=== PATIENT | female | born 1990 | race Caucasian/White ===

== ENCOUNTER 2020-02-29 11:47 | Inpatient (IN) ==
[2020-03-02] MEDS ORDERED: OXYTOCIN 30 UNITS/500 ML BAG IV PRN (11:46)
[2020-03-02] MEDS ORDERED: PENICILLIN G POTASSIUM 3 MU in DEXTROSE 5% 100 ML IV SCH ×2 (12:00→16:00)
[2020-03-02 12:07] LABS: Hematocrit (blood only) 37.7 % (37-47); Mean Corpuscular Hemoglobin 26.2 pg (25-34); Mean Corpuscular Volume 82.3 fL (80-100); Mean Platelet Volume 13.4 fL (7.4-10.4); Platelet Count 249 K/uL (130-400); RDW Standard Deviation 44.3 fL (36.4-46.3); Red Blood Count 4.58 M/uL (4.2-5.4); White Blood Count 10.05 K/uL (4.8-10.8)
[2020-03-02] MEDS ORDERED: DINOPROSTONE 10 MG INSERT PV ONE (12:11)
[2020-03-02] MEDS ORDERED: PENICILLIN G POTASSIUM 6 MU in DEXTROSE 5% 250 ML IV ONE (12:15)
--- NOTE | 2020-03-02 12:16 | Obstetrical Progress Note ---
Date of Service March 02, 2020 Assessment & Plan Admission and Anticipated Discharge Date Admission Date: March 02, 2020 Subjective Admit Note Physical Exam Physical Exam: 30 F P0000 at 40.4 weeks admitted for IOL for post-dates. GBS is positive. FHT Cat 1 with no contractions. Cervix finger tip/50/-3/vertex/firm/posterior/intact. Discussed options with patient for cervical ripening and will start with Cervidil. Results & Data ([facility]) Vital Signs (Past 12 Hours) Vital Signs Temp Pulse Resp BP 03/02/20 11:09 37.3 C 75 16 125/78 03/02/20 10:58 37.3 C 75 16 125/78
[2020-03-02 12:18] LABS: Mean Corpuscular Hgb Conc 31.8 g/dL (32-36)
--- NOTE | 2020-03-02 13:34 | Obstetrical Progress Note ---
Date of Service March 02, 2020 Assessment & Plan Admission and Anticipated Discharge Date Admission Date: March 02, 2020 Physical Exam Physical Exam: Cervidil 10 mg placed vaginally. FHT Cat 1. Results & Data ([facility]) Vital Signs (Past 12 Hours) Vital Signs Temp Pulse Resp BP 03/02/20 11:09 37.3 C 75 16 125/78 03/02/20 10:58 37.3 C 75 16 125/78
[2020-03-02] MEDS: LACTATED RINGER'S 1,000 ML IV PRN (17:13)
[2020-03-03] MEDS ORDERED: BUTORPHANOL TARTRATE 1 MG/ML VIAL IV PRN (00:33)
[2020-03-03] MEDS ORDERED: miSOPROStoL 50 MCG TAB PO SCH (03:00)
[2020-03-03] MEDS ORDERED: fentaNYL citrate 100 MCG/2 ML VIAL ONE (03:40)
[2020-03-03] MEDS ORDERED: fentaNYL 2MCG/ML ROPIV 1.25MG/ML 100 ML BAG EPI ONE (03:40)
[2020-03-03] MEDS ORDERED: ePHEDrine sulfate 50 MG/ML AMP ONE (03:40)
[2020-03-03] MEDS ORDERED: BUPIVACAINE 0.25% 30 ML VIAL ONE (03:40)
[2020-03-03] MEDS: LACTATED RINGER'S 1,000 ML IV PRN ×3 (04:08→17:15)
[2020-03-03] MEDS: PENICILLIN G POTASSIUM 3 MU in DEXTROSE 5% 100 ML IV PRN ×4 (04:12→15:39)
[2020-03-03] MEDS ORDERED: ePHEDrine sulfate 50 MG/ML AMP IV PRN (04:28)
[2020-03-03] MEDS ORDERED: NALOXONE HCL 1 MG in SODIUM CHLORIDE 0.9% 1000ML 1,000 ML IV PRN (04:28)
[2020-03-03] MEDS ORDERED: ONDANSETRON INJ 2 MG/ML 2 ML VIAL IV PRN (04:28)
[2020-03-03] MEDS ORDERED: NALOXONE HCL 0.4 MG/1 ML VIAL/CARP IV PRN (04:28)
[2020-03-03] MEDS ORDERED: DiphenhydrAMINE HCL 50 MG/ML VIAL IV PRN (04:28)
--- NOTE | 2020-03-03 04:33 | Anesthesiology Consultation ---
Date of Service March 03, 2020 Assessment & Plan Chart Review Chart Review: Patient NOT seen in Pre Admission Testing and Acceptable Risk for Labor Epidural Consults Requested none ASA ASA2 Proposed Anesthesia Anesthesia Type: Labor Epidural and CSE Risk / Benefits Reviewed With: PT / POA / Parent / Guardian, Accepts Plan and Informed Consent Obtained History Height/Weight Height: 5 ft 6 in Weight: 74.389 kg Allergies Allergy/AdvReac Type Severity Reaction Status Date / Time No Known Allergies Allergy Mild Verified 03/02/20 11:11 Medications Home Medications Medication Instructions Recorded Confirmed Last Taken cholecalciferol (vitamin D3) 50 2,000 unit PO QAM tab 04/29/19 03/02/20 03/02/20 06:30 mcg (2,000 unit) tablet PNV [id number]-[id number] fumarate-FA 1 tab PO QAM 01/27/20 03/02/20 03/02/20 06:30 [] loratadine [Claritin] 10 mg PO QAM 01/27/20 03/02/20 03/02/20 06:30 Active Medications Generic Name Dose Route Start Last Admin Trade Name Freq PRN Reason Stop Dose Admin Butorphanol Tartrate 1 mg 03/03/20 00:33 03/03/20 02:59 Stadol IV 04/02/20 00:32 1 mg Q2HWA PRN Administration Pain Lactated Ringer's 1,000 mls @ 125 mls/hr 03/02/20 11:46 03/03/20 04:08 Lr IV 03/04/20 11:45 999 mls/hr .Q8H PRN Administration L&D Protocol Protocol Penicillin G Potassium 3 mu/ 106 mls @ 100 mls/hr 03/03/20 04:03 03/03/20 04:12 Dextrose IV 03/13/20 04:02 100 mls/hr Q4H PRN Administration Give until delivery NPO Date Last Intake of Fluids: 03/03/20 Time Last Intake of Fluids: 04:00 Date Last Intake of Solids: 03/02/20 Time Last Intake of Solids: 17:00 Past Medical History Medical History Cataract left eye Syncope, near (Inactive) Vasovagal syncope hx of no indication what triggers Exercise / Class Metabolic Activity II 4-5 Yardwork/Stairs/Walk up hill Past Family History Family History Father Diabetes Hypertension Coronary heart disease Uncle Colorectal cancer Grandfather Myocardial infarction Prostate cancer Past Surgical History Surgical History History of tonsillectomy Past Anesthesia History No Hx of Anesthesia Complications and No Family Hx of Anesthesia Complications History of PONV No Hx of PONV and No Hx of Motion Sickness Social History Smoking Status: Never smoker Hx Alcohol Use: No Hx Substance Use: No substance use type: does not use Review of Systems no chest pain or sob Physical Exam Vital Signs Last Vital Signs Temp 37.1 C 03/03/20 03:15 Pulse 67 03/03/20 04:28 Resp 18 03/02/20 22:55 BP 121/70 03/02/20 22:55 Pulse Ox 98 03/03/20 04:28 ENMT Mouth: no TMJ abnormality Thyromental Distance: > or= 3.5 Finger Breadths Mallampati Class: II Neck normal visual inspection Respiratory normal respiratory effort Auscultation: lungs clear to auscultation bilaterally Cardiovascular Rate/Rhythm: regular rate and regular rhythm Musculoskeletal Spine: normal cervical ROM Neurologic moves all extremities Psychiatric Orientation: alert and oriented x 3 Testing Laboratory Results 03/02/20 11:57
--- NOTE | 2020-03-03 07:41 | Obstetrical Progress Note ---
Date of Service March 03, 2020 Assessment & Plan Admission and Anticipated Discharge Date Admission Date: March 02, 2020 Subjective Patient is seen and examined She is known to me from office Reviewed her records Admitted by Dr Andino yesterday for IOL Received Cervidil, SROM at [place], Epidural this morning around 45 am Comfortable FHR categ I Melvin ctxs q 2-4 min VE: 6/ 80%/0, small caput on PCN for GBS Continue to monitor Anticipate Results & Data ([facility]) Vital Signs (Past 12 Hours) Vital Signs Temp Pulse Resp BP Pulse Ox 03/03/20 07:33 85 96 03/03/20 07:32 83 105/65 03/03/20 07:28 75 98 03/03/20 07:23 76 97 03/03/20 07:18 67 96 03/03/20 07:15 71 107/59 L 03/03/20 07:13 76 97 03/03/20 07:08 76 98 03/03/20 07:03 80 97 03/03/20 07:01 81 101/56 L 03/03/20 07:00 37.1 C 16 03/03/20 06:58 80 100 03/03/20 06:53 80 98 03/03/20 06:48 69 98 03/03/20 06:46 72 98/56 L 03/03/20 06:43 71 97 03/03/20 06:38 67 97 03/03/20 06:33 70 97 03/03/20 06:31 64 99/54 L 03/03/20 06:28 65 97 03/03/20 06:23 73 97 03/03/20 06:18 69 97 03/03/20 06:15 67 102/56 L 03/03/20 06:13 66 98 03/03/20 06:08 70 97 03/03/20 06:03 74 99 03/03/20 06:01 75 111/68 03/03/20 05:58 65 98 03/03/20 05:53 69 98 03/03/20 05:48 75 96 03/03/20 05:45 81 93/57 L 03/03/20 05:43 78 98 03/03/20 05:38 81 99 03/03/20 05:33 80 97 03/03/20 05:28 79 94/54 L 97 03/03/20 05:23 73 98 03/03/20 05:22 68 100/57 L 03/03/20 05:18 74 95 03/03/20 05:16 67 108/55 L 03/03/20 05:14 65 111/60 03/03/20 05:13 69 96 03/03/20 05:12 68 108/57 L 03/03/20 05:10 79 100/55 L 03/03/20 05:08 79 98 03/03/20 05:06 75 87/53 L 03/03/20 05:03 69 96 03/03/20 05:02 77 85/51 L 03/03/20 04:58 73 96 03/03/20 04:55 75 100/52 L 03/03/20 04:53 74 98 03/03/20 04:52 76 101/58 L 03/03/20 04:50 71 103/59 L 03/03/20 04:49 75 105/59 L 03/03/20 04:48 72 98 03/03/20 04:47 71 118/65 03/03/20 04:44 77 117/66 03/03/20 04:43 67 98 03/03/20 04:38 77 98 03/03/20 04:33 77 98 03/03/20 04:28 67 98 03/03/20 04:23 66 97 03/03/20 04:18 66 99 03/03/20 03:15 37.1 C 03/03/20 01:26 36.7 C 03/02/20 22:55 36.8 C 60 18 121/70
[2020-03-03] MEDS ORDERED: OXYTOCIN 30 UNITS/500 ML BAG IV PRN ×2 (08:17→19:58)
[2020-03-03] MEDS: fentaNYL 2MCG/ML ROPIV 1.25MG/ML 100 ML BAG EPI PRN ×2 (11:39→16:14)
--- NOTE | 2020-03-03 11:53 | Obstetrical Progress Note ---
Date of Service March 03, 2020 Assessment & Plan Admission and Anticipated Discharge Date Admission Date: March 02, 2020 Subjective Patient is reevaluated She feels well, no complaints, no pain nor pressure VSS Afebrile FHR categ I Valentine: ctxs q 2-3 min VE; very thin rim of cervix, 100%, 0 Monitor closely Results & Data ([facility]) Vital Signs (Past 12 Hours) Vital Signs Temp Pulse Resp BP Pulse Ox 03/03/20 11:48 107 H 100 03/03/20 11:45 83 108/71 03/03/20 11:43 73 99 03/03/20 11:38 80 100 03/03/20 11:33 65 100 03/03/20 11:31 75 115/65 03/03/20 11:28 79 98 03/03/20 11:23 62 99 03/03/20 11:18 77 99 03/03/20 11:14 67 116/65 03/03/20 11:13 65 99 03/03/20 11:08 70 98 03/03/20 11:03 83 99 03/03/20 11:01 73 118/66 03/03/20 11:00 37.2 C 20 03/03/20 10:58 71 99 03/03/20 10:53 67 99 03/03/20 10:48 63 98 03/03/20 10:46 67 115/67 03/03/20 10:43 71 99 03/03/20 10:38 67 99 03/03/20 10:33 75 99 03/03/20 10:31 63 120/67 03/03/20 10:30 16 03/03/20 10:28 68 99 03/03/20 10:23 67 99 03/03/20 10:18 79 99 03/03/20 10:15 81 111/65 03/03/20 10:13 91 H 99 03/03/20 10:08 82 98 03/03/20 10:03 77 99 03/03/20 10:00 67 20 117/69 03/03/20 09:58 67 99 03/03/20 09:53 62 99 03/03/20 09:48 67 99 03/03/20 09:45 69 117/69 03/03/20 09:43 63 98 03/03/20 09:38 60 99 03/03/20 09:33 63 98 03/03/20 09:30 69 18 116/70 03/03/20 09:28 64 99 03/03/20 09:23 63 98 03/03/20 09:18 66 98 03/03/20 09:14 66 113/69 03/03/20 09:13 67 98 03/03/20 09:08 63 99 03/03/20 09:03 60 98 03/03/20 09:01 37.2 C 18 03/03/20 08:59 70 109/68 03/03/20 08:58 62 98 03/03/20 08:53 66 98 03/03/20 08:48 70 98 03/03/20 08:45 65 115/68 03/03/20 08:43 66 97 03/03/20 08:38 61 97 03/03/20 08:33 64 97 03/03/20 08:32 67 117/65 03/03/20 08:30 16 03/03/20 08:28 66 97 03/03/20 08:23 63 97 03/03/20 08:18 65 97 03/03/20 08:16 62 113/69 03/03/20 08:13 65 97 03/03/20 08:08 74 98 03/03/20 08:03 64 98 03/03/20 08:00 18 03/03/20 07:59 64 111/69 03/03/20 07:58 64 97 03/03/20 07:53 65 96 03/03/20 07:48 64 97 03/03/20 07:44 66 110/67 03/03/20 07:43 66 97 03/03/20 07:38 70 97 03/03/20 07:33 85 96 03/03/20 07:32 83 105/65 03/03/20 07:30 16 03/03/20 07:28 75 98 03/03/20 07:23 76 97 03/03/20 07:18 67 96 03/03/20 07:15 71 107/59 L 03/03/20 07:13 76 97 03/03/20 07:08 76 98 03/03/20 07:03 80 97 03/03/20 07:01 81 101/56 L 03/03/20 07:00 37.1 C 16 03/03/20 06:58 80 100 07/03/20 06:53 80 98 03/03/20 06:48 69 98 03/03/20 06:46 72 98/56 L 03/03/20 06:43 71 97 03/03/20 06:38 67 97 03/03/20 06:33 70 97 03/03/20 06:31 64 99/54 L 03/03/20 06:28 65 97 03/03/20 06:23 73 97 03/03/20 06:18 69 97 03/03/20 06:15 67 102/56 L 03/03/20 06:13 66 98 03/03/20 06:08 70 97 03/03/20 06:03 74 99 03/03/20 06:01 75 111/68 03/03/20 05:58 65 98 03/03/20 05:53 69 98 03/03/20 05:48 75 96 03/03/20 05:45 81 93/57 L 03/03/20 05:43 78 98 03/03/20 05:38 81 99 03/03/20 05:33 80 97 03/03/20 05:28 79 94/54 L 97 03/03/20 05:23 73 98 03/03/20 05:22 68 100/57 L 03/03/20 05:18 74 95 03/03/20 05:16 67 108/55 L 03/03/20 05:14 65 111/60 03/03/20 05:13 69 96 03/03/20 05:12 68 108/57 L 03/03/20 05:10 79 100/55 L 03/03/20 05:08 79 98 03/03/20 05:06 75 87/53 L 03/03/20 05:03 69 96 03/03/20 05:02 77 85/51 L 03/03/20 04:58 73 96 03/03/20 04:55 75 100/52 L 03/03/20 04:53 74 98 03/03/20 04:52 76 101/58 L 03/03/20 04:50 71 103/59 L 03/03/20 04:49 75 105/59 L 03/03/20 04:48 72 98 03/03/20 04:47 71 118/65 03/03/20 04:44 77 117/66 03/03/20 04:43 67 98 03/03/20 04:38 77 98 03/03/20 04:33 77 98 03/03/20 04:28 67 98 03/03/20 04:23 66 97 03/03/20 04:18 66 99 03/03/20 03:15 37.1 C 03/03/20 01:26 36.7 C
--- NOTE | 2020-03-03 14:56 | Obstetrical Progress Note ---
Date of Service March 03, 2020 Assessment & Plan Admission and Anticipated Discharge Date Admission Date: March 02, 2020 Subjective She labor down for about an hour and then started pushing at 1412 VE; 10/ 100%/+1 to +2 with pushing, caput+, coned head, anterior fontanelle at 3 o'clock position, tried int rotation FHR categ I Ctxs spaced out q 3-5 min Plan to augment with pitocin and continue with pushing Results & Data ([facility]) Vital Signs (Past 12 Hours) Vital Signs Temp Pulse Resp BP Pulse Ox 03/03/20 14:48 82 98 03/03/20 14:46 72 138/66 03/03/20 14:43 73 98 03/03/20 14:38 75 98 03/03/20 14:33 75 98 03/03/20 14:30 82 20 132/60 03/03/20 14:28 84 99 03/03/20 14:23 72 98 03/03/20 14:18 70 99 03/03/20 14:14 87 125/83 03/03/20 14:13 77 99 03/03/20 14:08 89 100 03/03/20 14:03 72 99 03/03/20 14:01 72 127/72 03/03/20 14:00 22 03/03/20 13:58 80 98 03/03/20 13:53 71 97 03/03/20 13:48 80 99 03/03/20 13:45 89 115/71 03/03/20 13:43 72 99 03/03/20 13:38 81 99 03/03/20 13:33 85 99 03/03/20 13:30 77 16 121/73 03/03/20 13:28 74 99 03/03/20 13:23 72 100 03/03/20 13:18 71 99 03/03/20 13:15 76 117/75 03/03/20 13:13 75 100 03/03/20 13:08 83 100 03/03/20 13:03 75 99 03/03/20 13:01 85 127/71 03/03/20 13:00 20 03/03/20 12:59 37.1 C 16 03/03/20 12:58 73 99 03/03/20 12:53 67 99 03/03/20 12:48 70 100 03/03/20 12:45 74 129/76 03/03/20 12:43 93 H 99 03/03/20 12:38 75 99 03/03/20 12:33 70 99 03/03/20 12:31 71 127/75 03/03/20 12:30 18 03/03/20 12:28 75 99 03/03/20 12:23 77 98 03/03/20 12:18 85 98 03/03/20 12:15 78 123/75 03/03/20 12:13 72 99 03/03/20 12:08 78 98 03/03/20 12:03 78 99 03/03/20 12:01 78 123/79 03/03/20 12:00 16 03/03/20 11:58 82 99 03/03/20 11:53 75 99 03/03/20 11:48 107 H 100 03/03/20 11:45 83 108/71 03/03/20 11:43 73 99 03/03/20 11:38 80 100 03/03/20 11:33 65 100 03/03/20 11:31 75 115/65 03/03/20 11:28 79 98 03/03/20 11:23 62 99 03/03/20 11:18 77 99 03/03/20 11:14 67 116/65 03/03/20 11:13 65 99 03/03/20 11:08 70 98 03/03/20 11:03 83 99 03/03/20 11:01 73 118/66 03/03/20 11:00 37.2 C 20 03/03/20 10:58 71 99 03/03/20 10:53 67 99 03/03/20 10:48 63 98 03/03/20 10:46 67 115/67 03/03/20 10:43 71 99 03/03/20 10:38 67 99 03/03/20 10:33 75 99 03/03/20 10:31 63 120/67 03/03/20 10:30 16 03/03/20 10:28 68 99 03/03/20 10:23 67 99 03/03/20 10:18 79 99 03/03/20 10:15 81 111/65 03/03/20 10:13 91 H 99 03/03/20 10:08 82 98 03/03/20 10:03 77 99 0703/20 10:00 67 20 117/69 03/03/20 09:58 67 99 03/03/20 09:53 62 99 03/03/20 09:48 67 99 03/03/20 09:45 69 117/69 03/03/20 09:43 63 98 03/03/20 09:38 60 99 03/03/20 09:33 63 98 03/03/20 09:30 69 18 116/70 03/03/20 09:28 64 99 03/03/20 09:23 63 98 03/03/20 09:18 66 98 03/03/20 09:14 66 113/69 03/03/20 09:13 67 98 03/03/20 09:08 63 99 03/03/20 09:03 60 98 03/03/20 09:01 37.2 C 18 03/03/20 08:59 70 109/68 03/03/20 08:58 62 98 03/03/20 08:53 66 98 03/03/20 08:48 70 98 03/03/20 08:45 65 115/68 03/03/20 08:43 66 97 03/03/20 08:38 61 97 03/03/20 08:33 64 97 03/03/20 08:32 67 117/65 03/03/20 08:30 16 03/03/20 08:28 66 97 03/03/20 08:23 63 97 03/03/20 08:18 65 97 03/03/20 08:16 62 113/69 03/03/20 08:13 65 97 03/03/20 08:08 74 98 03/03/20 08:03 64 98 03/03/20 08:00 18 03/03/20 07:59 64 111/69 03/03/20 07:58 64 97 03/03/20 07:53 65 96 03/03/20 07:48 64 97 03/03/20 07:44 66 110/67 03/03/20 07:43 66 97 03/03/20 07:38 70 97 03/03/20 07:33 85 96 03/03/20 07:32 83 105/65 03/03/20 07:30 16 03/03/20 07:28 75 98 03/03/20 07:23 76 97 03/03/20 07:18 67 96 03/03/20 07:15 71 107/59 L 03/03/20 07:13 76 97 03/03/20 07:08 76 98 03/03/20 07:03 80 97 03/03/20 07:01 81 101/56 L 03/03/20 07:00 37.1 C 16 03/03/20 06:58 80 100 03/03/20 06:53 80 98 03/03/20 06:48 69 98 03/03/20 06:46 72 98/56 L 03/03/20 06:43 71 97 03/03/20 06:38 67 97 03/03/20 06:33 70 97 03/03/20 06:31 64 99/54 L 03/03/20 06:28 65 97 03/03/20 06:23 73 97 03/03/20 06:18 69 97 03/03/20 06:15 67 102/56 L 03/03/20 06:13 66 98 03/03/20 06:08 70 97 03/03/20 06:03 74 99 03/03/20 06:01 75 111/68 03/03/20 05:58 65 98 03/03/20 05:53 69 98 03/03/20 05:48 75 96 03/03/20 05:45 81 93/57 L 03/03/20 05:43 78 98 03/03/20 05:38 81 99 03/03/20 05:33 80 97 03/03/20 05:28 79 94/54 L 97 03/03/20 05:23 73 98 03/03/20 05:22 68 100/57 L 03/03/20 05:18 74 95 03/03/20 05:16 67 108/55 L 03/03/20 05:14 65 111/60 03/03/20 05:13 69 96 03/03/20 05:12 68 108/57 L 03/03/20 05:10 79 100/55 L 03/03/20 05:08 79 98 03/03/20 05:06 75 87/53 L 03/03/20 05:03 69 96 03/03/20 05:02 77 85/51 L 03/03/20 04:58 73 96 03/03/20 04:55 75 100/52 L 03/03/20 04:53 74 98 03/03/20 04:52 76 101/58 L 03/03/20 04:50 71 103/59 L 03/03/20 04:49 75 105/59 L 03/03/20 04:48 72 98 03/03/20 04:47 71 118/65 03/03/20 04:44 77 117/66 03/03/20 04:43 67 98 03/03/20 04:38 77 98 03/03/20 04:33 77 98 03/03/20 04:28 67 98 03/03/20 04:23 66 97 03/03/20 04:18 66 99 03/03/20 03:15 37.1 C
--- NOTE | 2020-03-03 17:15 | Obstetrical Progress Note ---
Date of Service March 03, 2020 Assessment & Plan Admission and Anticipated Discharge Date Admission Date: March 02, 2020 Subjective Patient labored down another hour, stayed on kneed chest position for about half an hour Now on her back and has been pushing with good efforts. Head at +1 and +2 with pushing, caput and coned, still ROP FHR 130's categ I had one decel after 3 ctxs, bolus and nasal O2 were started recovered with good variability Continue to monitorclosely and pushing Results & Data ([facility]) Vital Signs (Past 12 Hours) Vital Signs Temp Pulse Resp BP Pulse Ox 03/03/20 17:03 80 99 03/03/20 17:00 91 H 113/74 03/03/20 16:58 90 97 03/03/20 16:53 97 H 97 03/03/20 16:48 76 98 03/03/20 16:45 76 102/55 L 03/03/20 16:43 73 99 03/03/20 16:38 81 98 03/03/20 16:33 72 98 03/03/20 16:30 87 104/53 L 03/03/20 16:28 83 98 03/03/20 16:23 77 98 03/03/20 16:20 102 H 94 03/03/20 16:18 88 96 03/03/20 16:15 71 125/75 03/03/20 16:13 68 98 03/03/20 16:08 71 97 03/03/20 16:03 66 99 03/03/20 15:59 37.1 C 70 20 123/71 03/03/20 15:58 73 99 03/03/20 15:53 63 98 03/03/20 15:48 72 97 03/03/20 15:46 64 128/72 03/03/20 15:43 67 98 03/03/20 15:38 74 99 03/03/20 15:33 73 96 03/03/20 15:31 67 129/67 03/03/20 15:28 75 98 03/03/20 15:23 69 99 03/03/20 15:18 64 98 03/03/20 15:15 64 130/72 03/03/20 15:13 64 97 03/03/20 15:08 70 98 03/03/20 15:03 67 126/73 98 03/03/20 15:01 37.8 C H 61 20 133/74 03/03/20 14:58 85 98 03/03/20 14:53 96 H 98 03/03/20 14:48 82 98 03/03/20 14:46 72 138/66 03/03/20 14:43 73 98 03/03/20 14:38 75 98 03/03/20 14:33 75 98 03/03/20 14:30 82 20 132/60 03/03/20 14:28 84 99 03/03/20 14:23 72 98 03/03/20 14:18 70 99 03/03/20 14:14 87 125/83 03/03/20 14:13 77 99 03/03/20 14:08 89 100 03/03/20 14:03 72 99 03/03/20 14:01 72 127/72 03/03/20 14:00 22 03/03/20 13:58 80 98 03/03/20 13:53 71 97 03/03/20 13:48 80 99 03/03/20 13:45 89 115/71 03/03/20 13:43 72 99 03/03/20 13:38 81 99 03/03/20 13:33 85 99 03/03/20 13:30 77 16 121/73 03/03/20 13:28 74 99 03/03/20 13:23 72 100 03/03/20 13:18 71 99 03/03/20 13:15 76 117/75 03/03/20 13:13 75 100 03/03/20 13:08 83 100 03/03/20 13:03 75 99 03/03/20 13:01 85 127/71 03/03/20 13:00 20 03/03/20 12:59 37.1 C 16 03/03/20 12:58 73 99 03/03/20 12:53 67 99 03/03/20 12:48 70 100 03/03/20 12:45 74 129/76 03/03/20 12:43 93 H 99 03/03/20 12:38 75 99 03/03/20 12:33 70 99 03/03/20 12:31 71 127/75 03/03/20 12:30 18 03/03/20 12:28 75 99 03/03/20 12:23 77 98 03/03/20 12:18 85 98 03/03/20 12:15 78 123/75 03/03/20 12:13 72 99 03/03/20 12:08 78 98 03/03/20 12:03 78 99 03/03/20 12:01 78 123/79 03/03/20 12:00 16 03/03/20 11:58 82 99 03/03/20 11:53 75 99 03/03/20 11:48 107 H 100 03/03/20 11:45 83 108/71 03/03/20 11:43 73 99 03/03/20 11:38 80 100 03/03/20 11:33 65 100 03/03/20 11:31 75 115/65 03/03/20 11:28 79 98 03/03/20 11:23 62 99 03/03/20 11:18 77 99 03/03/20 11:14 67 116/65 03/03/20 11:13 65 99 03/03/20 11:08 70 98 03/03/20 11:03 83 99 03/03/20 11:01 73 118/66 03/03/20 11:00 37.2 C 20 03/03/20 10:58 71 99 03/03/20 10:53 67 99 03/03/20 10:48 63 98 03/03/20 10:46 67 115/67 03/03/20 10:43 71 99 03/03/20 10:38 67 99 03/03/20 10:33 75 99 03/03/20 10:31 63 120/67 03/03/20 10:30 16 03/03/20 10:28 68 99 03/03/20 10:23 67 99 03/03/20 10:18 79 99 03/03/20 10:15 81 111/65 03/03/20 10:13 91 H 99 03/03/20 10:08 82 98 03/03/20 10:03 77 99 03/03/20 10:00 67 20 117/69 03/03/20 09:58 67 99 03/03/20 09:53 62 99 03/03/20 09:48 67 99 03/03/20 09:45 69 117/69 03/03/20 09:43 63 98 03/03/20 09:38 60 99 03/03/20 09:33 63 98 07/03/20 09:30 69 18 116/70 03/03/20 09:28 64 99 03/03/20 09:23 63 98 03/03/20 09:18 66 98 03/03/20 09:14 66 113/69 03/03/20 09:13 67 98 03/03/20 09:08 63 99 03/03/20 09:03 60 98 03/03/20 09:01 37.2 C 18 03/03/20 08:59 70 109/68 03/03/20 08:58 62 98 03/03/20 08:53 66 98 03/03/20 08:48 70 98 03/03/20 08:45 65 115/68 03/03/20 08:43 66 97 03/03/20 08:38 61 97 03/03/20 08:33 64 97 03/03/20 08:32 67 117/65 03/03/20 08:30 16 03/03/20 08:28 66 97 03/03/20 08:23 63 97 03/03/20 08:18 65 97 03/03/20 08:16 62 113/69 03/03/20 08:13 65 97 03/03/20 08:08 74 98 03/03/20 08:03 64 98 03/03/20 08:00 18 03/03/20 07:59 64 111/69 03/03/20 07:58 64 97 03/03/20 07:53 65 96 03/03/20 07:48 64 97 03/03/20 07:44 66 110/67 03/03/20 07:43 66 97 03/03/20 07:38 70 97 03/03/20 07:33 85 96 03/03/20 07:32 83 105/65 03/03/20 07:30 16 03/03/20 07:28 75 98 03/03/20 07:23 76 97 03/03/20 07:18 67 96 03/03/20 07:15 71 107/59 L 03/03/20 07:13 76 97 03/03/20 07:08 76 98 03/03/20 07:03 80 97 03/03/20 07:01 81 101/56 L 03/03/20 07:00 37.1 C 16 03/03/20 06:58 80 100 03/03/20 06:53 80 98 03/03/20 06:48 69 98 03/03/20 06:46 72 98/56 L 03/03/20 06:43 71 97 03/03/20 06:38 67 97 03/03/20 06:33 70 97 03/03/20 06:31 64 99/54 L 03/03/20 06:28 65 97 03/03/20 06:23 73 97 03/03/20 06:18 69 97 03/03/20 06:15 67 102/56 L 03/03/20 06:13 66 98 03/03/20 06:08 70 97 03/03/20 06:03 74 99 03/03/20 06:01 75 111/68 03/03/20 05:58 65 98 03/03/20 05:53 69 98 03/03/20 05:48 75 96 03/03/20 05:45 81 93/57 L 03/03/20 05:43 78 98 03/03/20 05:38 81 99 03/03/20 05:33 80 97 03/03/20 05:28 79 94/54 L 97 03/03/20 05:23 73 98 03/03/20 05:22 68 100/57 L 03/03/20 05:18 74 95 03/03/20 05:16 67 108/55 L 03/03/20 05:14 65 111/60 03/03/20 05:13 69 96 03/03/20 05:12 68 108/57 L 03/03/20 05:10 79 100/55 L
--- NOTE | 2020-03-03 18:17 | Obstetrical Progress Note ---
Date of Service March 03, 2020 Assessment & Plan Admission and Anticipated Discharge Date Admission Date: March 02, 2020 Subjective Patient has been pushing with good efforts for over an hour Head is lower, small caput visible at introitus FHR reassuring Continue to monitor closely Results & Data ([facility]) Vital Signs (Past 12 Hours) Vital Signs Temp Pulse Resp BP Pulse Ox 03/03/20 18:13 99 H 97 03/03/20 18:08 92 H 98 03/03/20 18:07 122 H 92 03/03/20 18:03 93 H 98 03/03/20 17:59 94 H 122/69 03/03/20 17:58 86 98 03/03/20 17:53 115 H 98 03/03/20 17:48 96 H 97 03/03/20 17:46 88 131/63 03/03/20 17:43 115 H 99 03/03/20 17:38 117 H 99 03/03/20 17:33 114 H 100 03/03/20 17:28 110 H 100 03/03/20 17:25 116 H 94 03/03/20 17:23 121 H 100 03/03/20 17:20 111 H 92 03/03/20 17:18 88 99 03/03/20 17:13 83 100 03/03/20 17:08 89 99 03/03/20 17:03 80 99 03/03/20 17:00 91 H 113/74 03/03/20 16:58 90 97 03/03/20 16:53 97 H 97 03/03/20 16:48 76 98 03/03/20 16:45 76 102/55 L 03/03/20 16:43 73 99 03/03/20 16:38 81 98 03/03/20 16:33 72 98 03/03/20 16:30 87 104/53 L 03/03/20 16:28 83 98 03/03/20 16:23 77 98 03/03/20 16:20 102 H 94 03/03/20 16:18 88 96 03/03/20 16:15 71 125/75 03/03/20 16:13 68 98 03/03/20 16:08 71 97 03/03/20 16:03 66 99 03/03/20 15:59 37.1 C 70 20 123/71 03/03/20 15:58 73 99 03/03/20 15:53 63 98 03/03/20 15:48 72 97 03/03/20 15:46 64 128/72 03/03/20 15:43 67 98 03/03/20 15:38 74 99 03/03/20 15:33 73 96 03/03/20 15:31 67 129/67 03/03/20 15:28 75 98 03/03/20 15:23 69 99 03/03/20 15:18 64 98 03/03/20 15:15 64 130/72 03/03/20 15:13 64 97 03/03/20 15:08 70 98 03/03/20 15:03 67 126/73 98 03/03/20 15:01 37.8 C H 61 20 133/74 03/03/20 14:58 85 98 03/03/20 14:53 96 H 98 03/03/20 14:48 82 98 03/03/20 14:46 72 138/66 03/03/20 14:43 73 98 03/03/20 14:38 75 98 03/03/20 14:33 75 98 03/03/20 14:30 82 20 132/60 03/03/20 14:28 84 99 03/03/20 14:23 72 98 03/03/20 14:18 70 99 03/03/20 14:14 87 125/83 03/03/20 14:13 77 99 03/03/20 14:08 89 100 03/03/20 14:03 72 99 03/03/20 14:01 72 127/72 03/03/20 14:00 22 03/03/20 13:58 80 98 03/03/20 13:53 71 97 03/03/20 13:48 80 99 03/03/20 13:45 89 115/71 03/03/20 13:43 72 99 03/03/20 13:38 81 99 03/03/20 13:33 85 99 03/03/20 13:30 77 16 121/73 03/03/20 13:28 74 99 03/03/20 13:23 72 100 03/03/20 13:18 71 99 03/03/20 13:15 76 117/75 03/03/20 13:13 75 100 03/03/20 13:08 83 100 03/03/20 13:03 75 99 07/03/20 13:01 85 127/71 03/03/20 13:00 20 03/03/20 12:59 37.1 C 16 03/03/20 12:58 73 99 03/03/20 12:53 67 99 03/03/20 12:48 70 100 03/03/20 12:45 74 129/76 03/03/20 12:43 93 H 99 03/03/20 12:38 75 99 03/03/20 12:33 70 99 03/03/20 12:31 71 127/75 03/03/20 12:30 18 03/03/20 12:28 75 99 03/03/20 12:23 77 98 03/03/20 12:18 85 98 03/03/20 12:15 78 123/75 03/03/20 12:13 72 99 03/03/20 12:08 78 98 03/03/20 12:03 78 99 03/03/20 12:01 78 123/79 03/03/20 12:00 16 03/03/20 11:58 82 99 03/03/20 11:53 75 99 03/03/20 11:48 107 H 100 03/03/20 11:45 83 108/71 03/03/20 11:43 73 99 03/03/20 11:38 80 100 03/03/20 11:33 65 100 03/03/20 11:31 75 115/65 03/03/20 11:28 79 98 03/03/20 11:23 62 99 03/03/20 11:18 77 99 03/03/20 11:14 67 116/65 03/03/20 11:13 65 99 03/03/20 11:08 70 98 03/03/20 11:03 83 99 03/03/20 11:01 73 118/66 03/03/20 11:00 37.2 C 20 03/03/20 10:58 71 99 03/03/20 10:53 67 99 03/03/20 10:48 63 98 03/03/20 10:46 67 115/67 03/03/20 10:43 71 99 03/03/20 10:38 67 99 03/03/20 10:33 75 99 03/03/20 10:31 63 120/67 03/03/20 10:30 16 03/03/20 10:28 68 99 07 10:23 67 99 07 10:18 79 99 07 10:15 81 111/65 03/03/20 10:13 91 H 99 03/03/20 10:08 82 98 03/03/20 10:03 77 99 03/03/20 10:00 67 20 117/69 03/03/20 09:58 67 99 03/03/20 09:53 62 99 03/03/20 09:48 67 99 03/03/20 09:45 69 117/69 03/03/20 09:43 63 98 03/03/20 09:38 60 99 03/03/20 09:33 63 98 03/03/20 09:30 69 18 116/70 03/03/20 09:28 64 99 03/03/20 09:23 63 98 03/03/20 09:18 66 98 03/03/20 09:14 66 113/69 03/03/20 09:13 67 98 03/03/20 09:08 63 99 03/03/20 09:03 60 98 03/03/20 09:01 37.2 C 18 03/03/20 08:59 70 109/68 03/03/20 08:58 62 98 03/03/20 08:53 66 98 03/03/20 08:48 70 98 03/03/20 08:45 65 115/68 03/03/20 08:43 66 97 03/03/20 08:38 61 97 03/03/20 08:33 64 97 03/03/20 08:32 67 117/65 03/03/20 08:30 16 03/03/20 08:28 66 97 03/03/20 08:23 63 97 03/03/20 08:18 65 97 03/03/20 08:16 62 113/69 03/03/20 08:13 65 97 03/03/20 08:08 74 98 03/03/20 08:03 64 98 03/03/20 08:00 18 03/03/20 07:59 64 111/69 03/03/20 07:58 64 97 03/03/20 07:53 65 96 03/03/20 07:48 64 97 03/03/20 07:44 66 110/67 03/03/20 07:43 66 97 03/03/20 07:38 70 97 03/03/20 07:33 85 96 03/03/20 07:32 83 105/65 03/03/20 07:30 16 03/03/20 07:28 75 98 03/03/20 07:23 76 97 03/03/20 07:18 67 96 03/03/20 07:15 71 107/59 L 03/03/20 07:13 76 97 03/03/20 07:08 76 98 03/03/20 07:03 80 97 03/03/20 07:01 81 101/56 L 03/03/20 07:00 37.1 C 16 03/03/20 06:58 80 100 03/03/20 06:53 80 98 03/03/20 06:48 69 98 03/03/20 06:46 72 98/56 L 03/03/20 06:43 71 97 03/03/20 06:38 67 97 03/03/20 06:33 70 97 03/03/20 06:31 64 99/54 L 03/03/20 06:28 65 97 03/03/20 06:23 73 97 03/03/20 06:18 69 97
[2020-03-03] MEDS ORDERED: MEASLES, MUMPS & RUBELLA VIRUS VIAL SQ ONE (19:58)
[2020-03-03] MEDS ORDERED: DIPHTHERIA/TETANUS/PERTUSSIS 0.5 ML SYR/VIAL IM ONE (19:58)
[2020-03-03] MEDS ORDERED: HYDROCORTISONE ACETATE 25 MG SUPP PR PRN (19:58)
[2020-03-03] MEDS ORDERED: SUPERCREAM 0.870% 15 GM JAR EXT PRN (19:58)
[2020-03-03] MEDS ORDERED: bisacodyL 10 MG SUPP PR PRN (19:58)
[2020-03-03] MEDS ORDERED: ACETAMINOPHEN 325 MG TAB PO PRN (19:58)
[2020-03-03] MEDS ORDERED: BENZOCAINE 20% AER SPR 82.5 GM CAN EXT PRN (19:58)
[2020-03-03] MEDS: IBUPROFEN 600 MG TAB PO PRN (20:49)
[2020-03-03] MEDS: OXYCODONE/ACETAMINOPHEN 5mg/325mg TAB PO PRN (21:25)
--- NOTE | 2020-03-03 21:56 | Delivery Summary ---
DATE OF OPERATION: 03/02/2020 TIME OF DELIVERY: 19:21 p.m. DETAILS OF DELIVERY: The patient was found to be fully dilated and desired to push. She pushed for about half an hour and then wanted to labor down. After laboring down for 2 hours and then she started to push again, pushed about 2-1/2 hours and delivered the head without difficulty. There was a nuchal cord around the neck x1 which was reduced. There was a terminal meconium. Shoulders were delivered with minimal traction. Baby was handed off to the mother where mouth and nose were suctioned. He was actively moving and crying. Cord was clamped x2 and cut. It was cut at 1 minute delay. Cord blood was obtained. Perineum and vagina were checked for lacerations. There was a second-degree perineal laceration at the posterior fourchette, which was confirmed with rectal exam. Excellent sphincter tone was noted and there was a second-degree right upper vaginal wall laceration extending into the right labia and gloves were changed. The perineal body muscles around the sphincter were held with Allis clamp and reinforced with [id number] stitch x2 and the vaginal mucosa and bulbocavernous muscles were repaired with 2-0 Vicryl in a running fashion, skin in a subcuticular fashion. A rectal exam was repeated. No sutures were felt and excellent sphincter tone was noted. Gloves were changed and the vagina on the right superior wall was repaired with 2-0 Vicryl in a running locked fashion and then this suture was extended into the right labia to the periclitoral area with 3-0 Vicryl in a running fashion. Excellent hemostasis was achieved. The placenta was delivered spontaneous as intact and complete. Uterus was explored, found to be empty. Lower segment was cleared of all clots and debris. EBL was 200 mL. Mom and baby tolerated the procedure well. Baby was a viable male infant, Apgars 8/9. No complications happened. Mom and baby are stable and I was present during whole procedure. At the end of the procedure, sponge, needle and instrument count was correct x2. I attest to the content of the Intraoperative Record and any orders documented therein. Any exceptions are noted below. DILLOND
--- NOTE | 2020-03-03 22:40 | Anesthesia Procedure Note ---
Date of Service March 03, 2020 Anesthesia Post Epidural Note Vital Signs Vital Signs: Temp Pulse Resp BP Pulse Ox 37.1 C 78 18 120/62 97 03/03/20 21:59 03/03/20 21:59 03/03/20 21:59 03/03/20 21:59 03/03/20 19:18 Pain Intensity Bilateral Abdomen: Pain Intensity: 0 Notes Mental Status: alert / awake / arousable Nausea / Vomiting: adequately controlled Pain: adequately controlled Airway Patency, RR, SpO2: stable & adequate BP & HR: stable & adequate Hydration State: stable & adequate Neuraxial Anesthesia: was administered and sensory block is resolving Anesthetic Complications: no major complications apparent and Pt Satisfied with anesthetic care Epidural: Removed without complications and With tip intact
[2020-03-04] MEDS: IBUPROFEN 600 MG TAB PO PRN ×5 (01:00→22:50)
[2020-03-04] MEDS: OXYCODONE/ACETAMINOPHEN 5mg/325mg TAB PO PRN ×3 (01:01→13:26)
[2020-03-04 03:36] VITALS: O2SAT 97
[2020-03-04 06:34] LABS: Hematocrit (blood only) 36.7 % (37-47); Hemoglobin 11.5 g/dL (12.0-16.0); Mean Corpuscular Hemoglobin 25.6 pg (25-34); Mean Corpuscular Hgb Conc 31.3 g/dL (32-36); Mean Corpuscular Volume 81.7 fL (80-100); Mean Platelet Volume 13.4 fL (7.4-10.4); Platelet Count 233 K/uL (130-400); RDW Coefficient of Variation 15.2 % (11.5-14.5); RDW Standard Deviation 44.1 fL (36.4-46.3); Red Blood Count 4.49 M/uL (4.2-5.4); White Blood Count 24.73 K/uL (4.8-10.8)
[2020-03-04] MEDS: DOCUSATE SODIUM 100 MG CAP PO SCH ×2 (07:23→21:06)
[2020-03-04] MEDS: PRENATAL VITAMIN 1 TAB PO SCH (07:25)
[2020-03-04] MEDS: FERROUS SULFATE 325 MG TAB PO SCH (07:25)
--- NOTE | 2020-03-04 10:49 | Obstetrical Progress Note ---
Date of Service March 04, 2020 Assessment & Plan (1) Normal course: PPD #1 pt doing well anticipate disch tomorrow Subjective Ambulation: ambulating normally Voiding: no voiding problems Passing Gas:: Yes Diet Tolerance:: regular diet Lochia:: Small Feeding Type:: breast feeding Review of Systems All systems reviewed & are unremarkable except as noted in HPI & below Physical Exam Constitutional WD/WN, vitals as above well developed and well nourished Eyes PERRL, conjunctivae normal, anicteric sclerae Neck trachea midline, no thyromegaly Respiratory normal respiratory effort, lungs clear to auscultation Auscultation: no crackles, no rales and no wheezes Cardiovascular RRR, no murmur, no edema Gastrointestinal (Abdomen) normal bowel sounds, soft, nontender, no hepatosplenomegaly Uterus is below umbilicus Musculoskeletal no cyanosis or clubbing, extremities motor strength 5/5 Skin no rashes, warm and dry Neurologic patellar DTR's 2+ bilat, sensation intact Psychiatric A+Ox3, euthymic affect Genitourinary normal external appearance Results & Data Vital Signs (Past 12 Hours) Vital Signs Temp Pulse Resp BP Pulse Ox 03/04/20 07:30 36.5 C 65 16 120/80 03/04/20 03:35 36.6 C 67 20 118/68 97
[2020-03-04] MEDS ORDERED: bisacodyL 5 MG TABEC PO SCH (20:00)
[2020-03-05] MEDS: IBUPROFEN 600 MG TAB PO PRN ×3 (03:24→12:05)
[2020-03-05 06:35] LABS: Hemoglobin 9.6 g/dL (12.0-16.0)
[2020-03-05] MEDS: DOCUSATE SODIUM 100 MG CAP PO SCH (07:39)
[2020-03-05] MEDS: PRENATAL VITAMIN 1 TAB PO SCH (07:39)
[2020-03-05] MEDS: FERROUS SULFATE 325 MG TAB PO SCH (07:39)
--- NOTE | 2020-03-05 08:37 | Obstetrical Progress Note ---
Date of Service March 05, 2020 Assessment & Plan (1) Normal course: PPD #2 pt doing well anticipate disch Subjective Ambulation: ambulating normally Voiding: no voiding problems Passing Gas:: Yes Diet Tolerance:: regular diet Lochia:: Small Feeding Type:: breast feeding Review of Systems All systems reviewed & are unremarkable except as noted in HPI & below Physical Exam Constitutional WD/WN, vitals as above well developed and well nourished Eyes PERRL, conjunctivae normal, anicteric sclerae Neck trachea midline, no thyromegaly Respiratory normal respiratory effort, lungs clear to auscultation Auscultation: no crackles, no rales and no wheezes Cardiovascular RRR, no murmur, no edema Gastrointestinal (Abdomen) normal bowel sounds, soft, nontender, no hepatosplenomegaly Uterus is below umbilicus Musculoskeletal no cyanosis or clubbing, extremities motor strength 5/5 Skin no rashes, warm and dry Neurologic patellar DTR's 2+ bilat, sensation intact Psychiatric A+Ox3, euthymic affect Genitourinary normal external appearance Results & Data Vital Signs (Past 12 Hours) Vital Signs Temp Pulse Resp BP 03/05/20 01:30 36.5 C 62 18 122/73 03/04/20 20:45 36.9 C 81 18 131/83
[2020-03-05 11:50] VITALS: BP 118/80; PULSE 64; TEMP 98.1
== END 2020-03-05 14:00 | disposition home or self-care (01) | DRG 807 ==
LOC: 4S1 03-02 10:52 → 4S2 03-03 22:39